=== PATIENT | male | born 1995 | race Caucasian/White ===

== ENCOUNTER 2022-04-21 18:58 | Emergency (ER) | payer SELFPAY ==
[~2022-04-21] VITALS: Ht 172.7 cm; Wt 80.0 kg
[2022-04-21 19:26] LABS: BASO % 0.3 % (0.0-2.0); EOS % 0.1 % (0.0-4.0); GRAN # 9.1 K/mm3 (1.4-6.5); GRAN % 87.8 % (42.2-75.2); HEMATOCRIT 39.4 % (42.0-52.0); LYMPH # 0.8 K/mm3 (1.2-3.4); LYMPH % 7.6 % (20.0-51.0); MEAN CELL VOLUME 89 fl (80.0-100.0); MEAN CORPUSCULAR HEMOGLOBIN 32 pg (27-31); MEAN CORPUSCULAR HGB CONC 36 g/dl (33.0-37.0); MEAN PLATELET VOLUME 9.5 fl (7.4-10.4); MONO # 0.4 K/mm3 (0.1-0.6); MONO % 3.9 % (1.7-9.3); PLATELET COUNT 228 K/mm3 (130-400); RED BLOOD COUNT 4.41 M/mm3 (4.20-5.60); REDCELL DISTRIBUTION WIDTH-CV 11.8 % (11.5-14.5)
[2022-04-21 19:40] LABS: ALBUMIN 4.3 gm/dL (3.5-5.0); BILIRUBIN,TOTAL 0.7 mg/dL (0.2-1.2); CALCIUM 9.4 mg/dL (8.4-10.2); CREATININE, serum 0.82 mg/dL (0.72-1.25); POTASSIUM 3.8 mmol/L (3.5-4.5); TOTAL PROTEIN 7.6 gm/dL (6.2-8.1)
[2022-04-21 20:43] VITALS: BP 145/88; PULSE 64; TEMP 98
== END 2022-04-21 20:43 | disposition home or self-care (01) ==
LOC: COL.ER 18:58
PROVIDERS: Physician Assistant
DX: T67.5XXA Heat exhaustion, unspecified, initial encounter (principal); Z28.310 Unvaccinated for COVID-19; W92.XXXA Exposure to excessive heat of man-made origin, initial encounter; Y93.H3 Activity, building and construction
CPT/HCPCS: J2405; J7120